=== PATIENT | male | born 1985 | race Asian ===

== ENCOUNTER 2016-12-28 00:31 | Emergency (ER) | payer BC ==
[~2016-12-28] VITALS: Ht 170.2 cm; Wt 87.5 kg
[2016-12-28 00:37] VITALS: TEMP 36.5; Ht 170.2 cm; Wt 87.5 kg
[2016-12-28] MEDS ORDERED: DiphenhydrAMINE HCL 50 MG/ML VIAL IV STA (01:08)
[2016-12-28] MEDS ORDERED: SODIUM CHLORIDE 0.9% 1000ML 2,000 ML IV STA (01:08)
[2016-12-28] MEDS ORDERED: METOCLOPRAMIDE HCL INJ 5 MG/ML 2 ML VIAL IV STA (01:08)
[2016-12-28] MEDS ORDERED: DICYCLOMINE HCL 10 MG/ML 2 ML AMP IM ONE (01:15)
[2016-12-28 01:37] LABS: BASO % 0.1 %; BASO ABS # 0.01 K/uL (0-0.2); COMPLETE YES; EOS % 0.1 %; HEMATOCRIT 48.2 % (42-52); IG% 0.6 %; LYMPH % 7.6 %; LYMPH ABS # 1.07 K/uL (1.2-3.4); MEAN CELL VOLUME 79.8 fL (80-100); MEAN CORPUSCULAR HEMOGLOBIN 28.3 pg (25-34); MEAN CORPUSCULAR HGB CONC 35.5 g/dl (32-36); MEAN PLATELET VOLUME 9.4 fL (7.4-10.4); MONO % 5.2 %; NEUT % 86.4 %; PLATELET COUNT 315 K/uL (130-400); RED BLOOD COUNT 6.04 M/uL (4.7-6.1); WHITE BLOOD COUNT 14.16 K/uL (4.8-10.8)
[2016-12-28 02:12] LABS: ALKALINE PHOSPHATASE 54 U/L (45-117); ALT/SGPT 75 U/L (12-78); AST/SGOT 41 U/L (15-37); BLOOD UREA NITROGEN 23 mg/dl (7-18); BUN/CREATININE RATIO 15.6 (10-20); CALCIUM 9.4 mg/dl (8.5-10.1); CARBON DIOXIDE 25 mmol/L (21-32); CHLORIDE 104 mmol/L (98-107); GLUCOSE 120 mg/dl (70-99); POTASSIUM 3.8 mmol/L (3.5-5.1); SODIUM 138 mmol/L (136-145)
[2016-12-28] MEDS ORDERED: BENTYL HOME PACK 10 MG VIAL PO ONE (03:15)
[2016-12-28] MEDS ORDERED: ONDANSETRON HOME PACK 4MG OD TAB PO ONE (03:15)
[2016-12-28 03:32] VITALS: BP 108/68; PULSE 102; O2SAT 98
--- NOTE | 2016-12-28 05:58 | EMERGENCY ROOM VISIT NOTE ---
History First contact with patient: 00:52 Chief Complaint: VOMITING Stated Complaint: VOMITING,COLD Nursing Triage Summary: Pt started vomiting with diarrhea around 930 last night. Pt vomiting in room at time of assessment. History of Present Illness The patient is a 31 year old male who presents to the Emergency Room with complaints of nausea, vomiting, diarrhea for the past 3 hours. No bad food exposure. No well water. No recent antibiotics. Patient denies blood or black in the vomit or stool. Patient denies chest pain, dyspnea, fever, chills , cough, congestion, back pain, urinary symptoms, localized abdominal pain. No sick contacts. Review of Systems See HPI for pertinent positives & negatives. A total of 10 systems reviewed and were otherwise negative. Past Medical/Surgical History none Social History Smoking Status: Never Smoker Smokeless Tobacco Use: No Alcohol Use: none Drug Use: none Marital Status: Housing Status: lives with family Occupation Status: employed Current/Historical Medications No Active Prescriptions or Reported Meds Physical Exam Vital Signs Date Time Temp Pulse Resp B/P (MAP) Pulse Ox O2 Delivery O2 Flow Rate FiO2 12/28/16 03:32 102 18 108/68 98 12/28/16 02:37 121 14 106/73 97 Room Air 12/28/16 01:14 Room Air 12/28/16 00:37 36.5 108 20 113/79 98 Room Air Pain Rating (0-10): 2.0 Physical Exam VITALS: Vitals are noted on the nurse's note and reviewed by myself. Vital signs stable. GENERAL: Pleasant male actively vomiting, in no acute distress, nondiaphoretic, well-developed well-nourished. SKIN: The skin was without rashes, erythema, edema, or bruising. There is no tenting of the skin. Capillary reflex less than 2 seconds. HEAD: Normocephalic atraumatic. EARS: External auditory canals clear, tympanic membranes pearly mckeon without erythema or effusion bilaterally. EYES: Pupils equal round and reactive to light and accommodation. Conjunctivae without injection, sclerae without icterus. Extraocular movements intact. NOSE: Patent, turbinates without inflammation or discharge. MOUTH: Mucous membranes mildly dry. Pharynx without erythema or exudate. Uvula midline. Airway patent. Tongue does not deviate. NECK: Supple without nuchal rigidity. No lymphadenopathy. No thyromegaly. Cervical spine is nontender. No JVD. HEART: Regular rate and rhythm without murmurs gallops or rubs. LUNGS: Clear to auscultation bilaterally without wheezes, rales or rhonchi. No dullness to percussion. No retractions or accessory muscle use. ABDOMEN: Positive bowel sounds x 4. Normal tympanic percussion. Soft, nontender, without masses or organomegaly. Durant sign negative. No guarding or rebound tenderness. No CVA tenderness MUSCULOSKELETAL: No muscle atrophy, erythema, or edema noted. NEURO: Patient was alert and oriented to person place and time. Normal sensation to light and sharp touch. No focal neurological deficits. Medical Decision & Procedures Laboratory Results 12/28/16 00:56 Red Blood Count 6.04, Mean Corpuscular Volume 79.8, Mean Corpuscular Hemoglobin 28.3, Mean Corpuscular Hemoglobin Concent 35.5, Mean Platelet Volume 9.4, Neutrophils (%) (Auto) 86.4, Lymphocytes (%) (Auto) 7.6, Monocytes (%) (Auto) 5.2, Eosinophils (%) (Auto) 0.1, Basophils (%) (Auto) 0.1, Neutrophils # (Auto) 12.24, Lymphocytes # (Auto) 1.07, Monocytes # (Auto) 0.73, Eosinophils # (Auto) 0.02, Basophils # (Auto) 0.01 12/28/16 00:56 Test 12/28/16 00:56 White Blood Count 14.16 K/uL (4.8-10.8) Red Blood Count 6.04 M/uL (4.7-6.1) Hemoglobin 17.1 g/dL (14.0-18.0) Hematocrit 48.2 % (42-52) Mean Corpuscular Volume 79.8 fL (80-100) Mean Corpuscular Hemoglobin 28.3 pg (25-34) Mean Corpuscular Hemoglobin Concent 35.5 g/dl (32-36) Platelet Count 315 K/uL (130-400) Mean Platelet Volume 9.4 fL (7.4-10.4) Neutrophils (%) (Auto) 86.4 % Lymphocytes (%) (Auto) 7.6 % Monocytes (%) (Auto) 5.2 % Eosinophils (%) (Auto) 0.1 % Basophils (%) (Auto) 0.1 % Neutrophils # (Auto) 12.24 K/uL (1.4-6.5) Lymphocytes # (Auto) 1.07 K/uL (1.2-3.4) Monocytes # (Auto) 0.73 K/uL (0.11-0.59) Eosinophils # (Auto) 0.02 K/uL (0-0.5) Basophils # (Auto) 0.01 K/uL (0-0.2) RDW Standard Deviation 40.7 fL (36.4-46.3) RDW Coefficient of Variation 14.1 % (11.5-14.5) Immature Granulocyte % (Auto) 0.6 % Immature Granulocyte # (Auto) 0.09 K/uL (0.00-0.02) Anion Gap 9.0 mmol/L (3-11) Est Creatinine Clear Calc Drug Dose 75.4 ml/min Estimated GFR () 70.9 Estimated GFR (Non- 61.2 BUN/Creatinine Ratio 15.6 (10-20) Calcium Level 9.4 mg/dl (8.5-10.1) Total Bilirubin 0.2 mg/dl (0.2-1) Direct Bilirubin < 0.1 mg/dl (0-0.2) Aspartate Amino Transf (AST/SGOT) 41 U/L (15-37) Alanine Aminotransferase (ALT/SGPT) 75 U/L (12-78) Alkaline Phosphatase 54 U/L (45-117) Total Protein 8.7 gm/dl (6.4-8.2) Albumin 4.7 gm/dl (3.4-5.0) Chemistry Specimen Hemolysis Medications Administered Medications (Trade) Dose Ordered Sig/Yuko Route Start Time Stop Time Status Last Admin Dose Admin Sodium Chloride 2,000 ml @ 999 mls/hr Q2H1M STAT IV 12/28/16 01:08 12/28/16 03:08 DC 12/28/16 01:23 999 MLS/HR Metoclopramide HCl (Reglan Inj) 10 mg NOW STAT IV 12/28/16 01:08 12/28/16 01:10 DC 12/28/16 01:23 10 MG Diphenhydramine HCl (Benadryl Inj) 12.5 mg NOW STAT IV 12/28/16 01:08 12/28/16 01:10 DC 12/28/16 01:23 12.5 MG Dicyclomine HCl (Bentyl Inj) 20 mg NOW ONCE IM 12/28/16 01:15 12/28/16 01:16 DC 12/28/16 01:23 20 MG Ondansetron HCl (ZOFRAN ODT 4MG Home Pack) 1 homepack UD ONCE PO 12/28/16 03:15 12/28/16 03:16 DC 12/28/16 03:27 1 HOMEPACK Dicyclomine HCl (Dicyclomine HCl 10MG Home Pack) 1 ea UD ONCE PO 12/28/16 03:15 12/28/16 03:16 DC 12/28/16 03:27 1 EA ED Course Prior records/ancillary studies reviewed. Triage Nursing notes reviewed. Additional history obtained from the family. The patient's history was concerning for nausea, vomiting, diarrhea, and abdominal pain. Differential diagnosis: Etiologies such as gastroenteritis, food borne illness, infections, appendicitis , diverticulitis, inflammatory bowel disease, obstruction, GI bleed, biliary pathology, as well as others were entertained. Physical examination findings: As above. Abdominal examination revealed no tenderness. Vital signs reviewed and revealed mild tachycardia. ER treatment provided: IV hydration 2 L NSS. Reglan, Benadryl, Bentyl On reassessment the patient felt better. Patient was tolerating p.o. intake. Diagnostics interpretation by me: The labs revealed leukocytosis mostly marginalization from vomiting. Creatinine slightly elevated mostly from dehydration This appears to be consistent with vomiting and diarrhea most likely viral in etiology. Patient is well-appearing. He is tolerating fluids. He requested to leave. He was advised to do clear liquid diet today and the progress as tolerated to bland diet tomorrow. He was advised to repeat his creatinine in a few days or here in the ER sooner for abdominal pain, fevers, vomiting, diarrhea , worsening signs or symptoms or as needed. Patient did not have acute abdomen on exam. He is well-appearing. By the evaluation outlined above emergent etiologies such as appendicitis, diverticulitis, obstruction, cardiac sources, mesenteric ischemia, aortic pathology, inflammatory bowel disease, renal colic, PUD, biliary pathology, UTI, as well as others were deemed relatively unlikely. The pt informed about the findings as listed above. All questions were answered and pleased with the treatment. Return instructions were outlined and the patient was discharged in stable condition. Outpatient prescription management: Zofran Referral: The patient was referred to their primary care physician for follow-up in 2 to 3 days for a recheck of the current condition. Case reviewed with my attending Medical Decision As above Medication Reconcilliation Current Medication List: was personally reviewed by me Blood Pressure Screening Patient's blood pressure: Normal blood pressure Impression Primary Impression: Dehydration Additional Impression: Nausea, vomiting, and diarrhea Departure Information Dispostion Home / Self-Care Condition GOOD Prescriptions No Active Prescriptions or Reported Meds Forms HOME CARE DOCUMENTATION FORM, Work Instructions, Return To Work: 2 days IMPORTANT VISIT INFORMATION Patient Instructions Vomiting - [facility], [facility], ED Diet [place] Additional Instructions DO NOT drive, drink alcohol, operate machinery, or perform dangerous activities today. You were given medications in the ER that can affect your ability to safely function or operate a vehicle. Your kidney functions are slightly elevated today. This is most likely from dehydration. Recheck this with the family care doctor. Bentyl tablets 10mg: Take one every six hours as needed for nausea. Avoid alcohol, operating machinery or dangerous equipment, working on ladders or roofs , DRIVING, or situations where being under the influence may be dangerous. Zofran(odansetron) tablets 4mg: Take one and allow it to dissolve in your mouth every four to six hours as needed for nausea or vomiting. Ibuprofen(Motrin, Advil) may be used for fever or pain. Use 600mg every six hours as needed. Take with food. Avoid using more than 2400mg in a 24 hour period. Do not use 2400mg per day for more than three consecutive days without physician direction. Prolonged inappropriate use can lead to stomach upset or ulcers. (AND/OR) Acetaminophen(Tylenol) may be used for fever or pain. Use 1000mg every six hours as needed. Avoid using more than 3000mg in a 24 hour period. Rest and drink plenty of fluids as tolerated. Slow sips of water or sports drinks are recommended instead of large amounts all at once. Continue current medications. Once your stomach is settled start with a clear liquid diet (jello, soup broth, etc.) and then advance as tolerated. You should avoid full, heavy meals for about 24 hrs from the time your symptoms resolved. Return to the ER for persistent vomiting, fevers, abdominal pain, chest pains, difficulty breathing, black or bloody stools, worsening of your condition, or as needed. Follow up with your primary physician in 2-3 days for a recheck of your current condition. 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
== END 2016-12-28 03:33 | disposition home or self-care (01) ==
LOC: C.EDB 00:32
DX: E86.0 Dehydration (principal); R11.2 Nausea with vomiting, unspecified; R19.7 Diarrhea, unspecified